=== PATIENT | female | born 1985 | race African-American/Black ===

== ENCOUNTER 2018-11-21 03:53 | Emergency (ER) | payer OTHER ==
[~2018-11-21] VITALS: Ht 172.7 cm; Wt 68.0 kg
[2018-11-21 04:30] VITALS: BP 121/77
== END 2018-11-21 06:44 | disposition left against medical advice (07) ==
LOC: ER 03:53
DX: J20.9 Acute bronchitis, unspecified (principal); J45.909 Unspecified asthma, uncomplicated; F17.200 Nicotine dependence, unspecified, uncomplicated; Z53.21 Procedure and treatment not carried out due to patient leaving prior to being seen by health care provider; Z98.890 Other specified postprocedural states